=== PATIENT | male | born 1960 | race Caucasian/White ===

== ENCOUNTER 2023-06-06 07:47 | Day surgery (SDC) | payer OTHER, SELFPAY ==
[2023-05-29 13:26] VITALS: BMI 30.1
[2023-06-06] VITALS (7 sets, daily range): BP systolic 104–122; BP diastolic 70–82
--- NOTE | 2023-06-06 12:26 | ITS.CL.IMPLP ---
Medical Dosimetrist - Implant Loop
Implant Loop
Procedure Report:
Date of Procedure: June 06, 2023.
Procedure: Insertable Loop Recorder Explant.
Indication: Prolonged cardiac monitoring felt to be no longer required.
Performing physician: Krishna Hicks MD, [facility].
Explant: Elaina ASCENCIO; Model: [id number] Serial #[id number] (implanted 10/10/2022).
Technique: A time out was performed per protocol. The patient was prepped and draped in the usual fashion. Anesthesia was administered by the anesthesia staff. Local anesthetic was applied to the left prepectoral subcutaneous tissue. An incision was
made over the superior aspect of the device. Dissection was carried to the capsule. The capsule was entered. The old device was explanted. The pocket appeared normal. Hemostasis was excellent. The pocket was irrigated saline. The incision was
closed with 4-0 Monocryl suture. The skin was closed with steri-strips. The estimated blood loss was less than 0.5 mL. There were no complications. No fluoroscopy was used.
Conclusion: Uncomplicated insertable loop explantation.
Recommendation: Routine incision care.
cc: MARINO Liang and Nikhil Myles MD.
== END 2023-06-06 11:18 | disposition home or self-care (01) ==
LOC: CATH 07:47
PROVIDERS: ATTENDING PHYSICIAN Internal Medicine Cardiovascular Disease; FAMILY PHYSICIAN Nurse Practitioner Adult Health; OTHER PHYSICIAN Internal Medicine
DX: Z09 Encounter for follow-up examination after completed treatment for conditions other than malignant neoplasm (principal); Z86.73 Personal history of transient ischemic attack (TIA), and cerebral infarction without residual deficits; E78.5 Hyperlipidemia, unspecified; K21.9 Gastro-esophageal reflux disease without esophagitis; G47.33 Obstructive sleep apnea (adult) (pediatric); Z79.01 Long term (current) use of anticoagulants; Z79.82 Long term (current) use of aspirin
CPT/HCPCS: 33286; 93005